=== PATIENT | female | born 1970 | race Caucasian/White ===

== ENCOUNTER → 2018-08-14 12:01 | Outpatient (CLI) | payer OTHER, SELFPAY ==
[2018-08-14 12:07] LABS: Bacteria 0 SEEN /hpf (None Seen); Mucous, Urine 0 SEEN /hpf (<or=2+); Red Blood Cells-Urine 0 SEEN /hpf (0-5)
[2018-08-14 12:19] LABS: Color, Urine Yellow (Yellow); Glucose, Dipstick Normal (Normal); Ketone-Dipstick Negative (Negative); Leukocyte Esterase-Dipstick 100 /ul (Negative); Nitrite-Dipstick Negative (Negative); Occult Blood-Urine Negative /ul (Negative); Protein-Dipstick Negative (Negative); Specific Gravity, Urine 1.005 (1.002-1.030); Urine Bilirubin Dipstick Negative (Negative); Urine Clarity Sl. Cloudy (Clear); Urine Urobilinogen Normal (Normal)
[2018-08-14 12:32] LABS: Squamous Epithelial Cells - UA 0-5 SEEN /hpf (5-10); White Blood Cells 10-25 SEEN /hpf (0-5)
== END ==
PROVIDERS: Referring Provider Physician Assistant Surgical; Visit Provider Physician Assistant Surgical
DX: R30.0 Dysuria (principal)
CPT/HCPCS: 81001; 87086; 87088; 87186

== ENCOUNTER → 2019-06-06 14:55 | Outpatient (CLI) | payer OTHER, SELFPAY ==
[2018-08-13 16:52] VITALS: BMI 23.4
--- NOTE | 2019-06-06 14:58 | RAD_ITS ---
STUDY: X-RAY - RIGHT SHOULDER REASON FOR EXAM: Female, 48 years old. Fall, shoulder pain TECHNIQUE: 5 view(s) of the shoulder. COMPARISON: None. FINDINGS: Normal glenohumeral articulation. There is degenerative arthrosis of the acromioclavicular joint without inferior osseous spur formation. Normal acromion. Normal humeral head and visualized proximal humerus. The soft tissue structures are unremarkable. Normal visualized pulmonary apex. RAD/Shoulder min 2 Views IMPRESSION: 1. No acute fracture or dislocation. 2. Mild acromioclavicular joint arthrosis Electronically Signed: Anthony Grace MD at 16:11 EDT Tel , Service support ,
== END ==
PROVIDERS: Family Provider Family Medicine; PCP Family Medicine; Referring Provider Family Medicine; Visit Provider Family Medicine
DX: M19.011 Primary osteoarthritis, right shoulder (principal)
CPT/HCPCS: 73030

== ENCOUNTER → 2019-06-25 16:47 | Outpatient (CLI) | payer OTHER, SELFPAY ==
--- NOTE | 2019-06-25 17:30 | MRI_ITS ---
HISTORY:RIGHT shoulder pain s/p pulling injury, decreased ROM, unable to raise arm in front of body MRI EXAMINATION OF THERight SHOULDER COMPARISON: Right aggressive the right shoulder obtained on June 06, 2019 TECHNIQUE: Coronal fat-suppressed proton density, fat-suppressed T2, sagittal T2 and axial fat-suppressed proton density and T2 # of images including paperwork:151 FINDINGS: Bones: Evaluation of the osseous structures limited without T1 images. No acute fractures are noted.. Rotator cuff: The supraspinatus tendon is intact. There is minimal fraying of the articular surface of the infraspinatus tendon just proximal to the footprint. The teres minor tendon is intact. The subscapularis tendon is intact. No evidence of muscle atrophy Coracoacromial arch and Acromioclavicular joint: The acromion demonstrates Bigliani Type 2 morphology. The acromiohumeral distance is at the lower limits of normal. Mild acromioclavicular arthropathy. Trace amount of fluid within the subacromial subdeltoid bursa The cortical acromial ligament is intact The cortical humeral distance is maintained Biceps tendon: The extraarticular tendon is within the bicipital groove.The intraarticular tendon minimal tendinosis at the level of the bicipital anchor. Glenohumeral joint and labrum: No significant joint effusion. Trace amount of fluid was seen within the subcoracoid bursa. The middle glenohumeral ligament and the anterior and posterior bands of the inferior glenohumeral ligament are intact. No labral tear. The articular cartilage is intact. No masses are seen within the suprascapular notch or the spinoglenoid notch. The quadrilateral space is unremarkable. CONCLUSION: Mild acromial clavicular arthropathy. There is a trace amount of fluid within the subacromial subdeltoid bursa Minimal fraying of the infraspinatus tendon articular surface just proximal to the footprint Tendinosis of the intra-articular bicipital tendon just proximal to the anchor . at 1937 Reported and signed by: Nicolasa Powell DO Electronically Signed: Nicolasa Powell DO at 19:36 EDT Tel , Service support , MRI/Upper Ext Joint Only(Routine)
== END ==
PROVIDERS: Family Provider Family Medicine; PCP Family Medicine; Referring Provider Family Medicine; Visit Provider Family Medicine
DX: M75.21 Bicipital tendinitis, right shoulder (principal)
CPT/HCPCS: 73221

== ENCOUNTER → 2019-06-26 17:43 | Outpatient (CLI) | payer OTHER, SELFPAY ==
--- NOTE | 2019-06-26 17:50 | RAD_ITS ---
HISTORY:RUQ pain, some nausea RUQ pain, some nausea EXAMINATION/TECHNIQUE: XR Abdomen 1 View: COMPARISON: None FINDINGS: LINES AND TUBES: None. BOWEL GAS PATTERN: Non-obstructive. No bowel or stomach distention. Clips are seen within the right pelvis suspect for tubal ligation FREE AIR: Not assessed on a single supine view. ORGANOMEGALY: Not seen. CALCIFICATIONS: No abnormal calcifications observed. LOWER CHEST: No acute pathology. BONES AND SOFT TISSUES: No acute pathology. RAD/Abdomen Single View IMPRESSION: Non-obstructive bowel gas pattern. at 2131 Reported and signed by: Nicolasa Powell DO Electronically Signed: Nicolasa Powell DO at 21:30 EDT Tel , Service support ,
[2019-06-26 18:13] LABS: Absolute Neutrophil Count 4.1 X10^3/uL (2.0-7.7); Basophil# 0.03 X10^3/uL; Basophil% 0.5 % (0-1); Eosinophil# 0.03 X10^3/uL; Eosinophils% 0.5 % (0-5); Hemoglobin 13.9 g/dL (12.0-15.0); Lymphocyte % 24.8 % (19-41); Mean Corp Hgb Conc 33.1 g/dL (32-36); Mean Corpuscular Hgb 31.9 pg (27.0-32.0); Mean Corpuscular Volume 96.3 fL (81-99); Mean Platelet Vol. 10.9 fl (6.2-12.0); Monocyte# 0.41 X10^3/uL; Monocyte% 6.8 % (0-10); NRBC Flagged by Analyzer 0 % (0-5); Neutrophil # 4.06 X10^3/uL (2.7-7.7); Neutrophil % 67.2 % (47-70); Platelet Count 206 K/mm3 (150-450); RBC Distribution Width CV 11.7 % (11.6-14.6); RBC Distribution Width SD 41.1 fl (35.1-43.9); Red Blood Count 4.36 M/mm3 (4.2-5.4)
[2019-06-26 19:04] LABS: ALB/GLOB Ratio 1.2 RATIO (0.9-2.4); AST(SGOT) 11 U/L (15-37); Alanine Aminotransfer ALT/SGPT 20 U/L (13-56); Albumin, Serum 4.2 g/dL (3.2-5.0); Alkaline Phosphatase 78 U/L (45-117); Anion Gap 6 (5-15); BUN 15 mg/dL (7-18); BUN/Creat Ratio 16.1 RATIO (10-20); Calcium,Total 9.1 mg/dL (8.5-10.1); Chloride 105 mmol/L (98-107); Creatinine, Serum 0.93 mg/dL (0.55-1.02); EST Glomerular Filtration Rate 67 mL/min (>60); Est Glom Filt Rate - Afr Amer 82 mL/min (>60); Globulin 3.5 g/dL (2.2-4.2); Glucose 99 mg/dL (74-106); Lipase 114 U/L (73-393); Potassium 3.8 mmol/L (3.5-5.1); Protein, Total 7.7 g/dL (6.4-8.2); Sodium Level 140 mmol/L (136-145)
== END ==
PROVIDERS: Family Provider Family Medicine; PCP Family Medicine; Referring Provider Family Medicine; Visit Provider Family Medicine
DX: R10.11 Right upper quadrant pain (principal)
CPT/HCPCS: 36415; 74018; 80053; 83690; 85025

== ENCOUNTER → 2019-06-27 14:56 | Outpatient (CLI) | payer OTHER, SELFPAY ==
--- NOTE | 2019-06-27 14:59 | US_ITS ---
STUDY: ABDOMINAL ULTRASOUND - RIGHT UPPER QUADRANT REASON FOR VISIT: Female, 48 years old. Right upper quadrant pain TECHNIQUE: Ultrasound evaluation of the right upper quadrant was performed with real-time and static enriquez-scale imaging. TECHNICAL QUALITY: Adequate. COMPARISON: None. FINDINGS: Liver: The liver measures 10.3 cm. There is normal echogenicity of the liver. The bile ducts are within normal limits. There is hepatic color flow. The direction of portal flow is hepatopetal. There is no demonstrated mass lesion. Gallbladder: Normal distended gallbladder. The gallbladder wall measures 1.9 mm. There is a positive sonographic Estevez's sign. There is no pericholecystic fluid. There are no gallstones. Common Bile Duct (C.B.D.): The common bile duct measures 2.1 mm. Pancreas: Normal size of the head, body and tail of the pancreas. There is normal echogenicity of the pancreas. There is no demonstrated pancreatic mass or cyst. Right Kidney: Normal size of the right kidney. The right kidney measures 10.1 x 4.9 x 2.7 cm. Normal renal cortex. The right cortex measures 1.0 cm. There is no demonstrated renal mass or cyst. There is no right hydronephrosis. US/Abdomen Limited IMPRESSION: No evidence for gallstones however in view of positive Estevez's sign HIDA scan with CCK stimulation would be helpful to exclude acalculous cholecystitis Electronically Signed: Gaston Wilson MD at 15:58 EDT , Service support ,
== END ==
PROVIDERS: Family Provider Family Medicine; PCP Family Medicine; Referring Provider Family Medicine; Visit Provider Family Medicine
DX: R10.11 Right upper quadrant pain (principal)
CPT/HCPCS: 76705

== ENCOUNTER → 2019-07-03 10:28 | Outpatient (CLI) | payer OTHER, SELFPAY ==
--- NOTE | 2019-07-03 10:31 | NM_ITS ---
CLINICAL: 48-year-old female with reported history of right upper quadrant abdominal pain. RADIONUCLIDE HEPATOBILIARY SCINTIGRAPHY COMPARISON: Abdominal ultrasound report 06/27/2019 FINDINGS: Following the intravenous administration of 5.3 mCi of 99m Tc Mebrofenin, hepatobiliary images reveal: 1. Relatively prompt and homogeneous radiopharmaceutical concentration is noted by a normal sized liver. No parenchymal defects are identified. 2. Gallbladder activity is identified at 30 minutes post radiopharmaceutical administration. 3. Small intestinal tract is observed at 60 minutes following tracer injection. 4. Washout of the radiopharmaceutical by the hepatic parenchyma appears qualitatively normal. Cholecystokinin (0.02 ug/kg) was administered intravenously over a 30-minute period. The post CCK gallbladder ejection fraction calculated at 21 minutes following Cholecystokinin administration was noted to be 73.0 % (normal greater than 35%). During 30 minutes of post CCK imaging, there is no scintigraphic evidence of reflux of the radiotracer into the common hepatic duct or refilling of the gallbladder. DE/Hepatobilliary Img w/Pharm Int IMPRESSION: 1. NORMAL 99m Tc Mebrofenin hepatobiliary imaging examination with Cholecystokinin. A. A gallbladder ejection fraction calculated to be greater than 35% following the administration of Cholecystokinin makes the probability of functional hepatobiliary disease (gallbladder and/or sphincter of Oddi dyskinesia) and/or organic hepatobiliary disease (chronic acalculous cholecystitis and/or cystic duct syndrome) to be low. (Lynne Salazar et al, Journal of Nuclear Medicine 32:1695, 1990). Electronically Signed: Anthony Gaston DO at 22:10 EDT Tel , Service support ,
== END ==
PROVIDERS: Family Provider Family Medicine; PCP Family Medicine; Referring Provider Family Medicine; Visit Provider Family Medicine
DX: R10.11 Right upper quadrant pain (principal); R19.8 Other specified symptoms and signs involving the digestive system and abdomen
CPT/HCPCS: 78227; A9537; J2805

== ENCOUNTER → 2019-07-17 18:36 | Outpatient (CLI) | payer OTHER, SELFPAY ==
--- NOTE | 2019-07-17 18:30 | CT_ITS ---
STUDY: CT ABDOMEN WITH CONTRAST REASON FOR EXAM: Female, 48 years old. Right upper quadrant pain. RADIATION DOSAGE (If Supplied By Facility): CTDIvol = ( 9.73 ) mGy, DLP = ( 435. ) mGycm TECHNIQUE: Transaxial images were obtained post I.V. administration of 75ML IV/Oral Isovue 370, and with oral contrast. Sagittal and coronal images were reconstructed. Individualized dose optimization techniques were used for this CT. COMPARISON: 12/20/2013. FINDINGS: The visualized lung bases are unremarkable. The visualized portions of the heart are within normal limits. Normal liver. Normal gallbladder and extrahepatic biliary system. Normal spleen. Normal pancreas. Normal bilateral adrenal glands. Normal right kidney. Normal left kidney. Normal visualized stomach. Normal small intestine. Normal colon. Postsurgical absence of the appendix. Normal abdominal aorta. Normal inferior vena cava. Normal retroperitoneum. Normal abdominal wall. Normal osseous structures. CT/Abdomen WITH IV Contrast IMPRESSION: No CT evidence of mass or acute abnormality in the abdomen and pelvis. No CT evidence of stones in the kidneys, ureters and bladder. No significant interval changes or new findings when compared to 12/20/2013. Electronically Signed: Kvng Liriano MD at 12:03 EDT , Service support ,
== END ==
PROVIDERS: Family Provider Family Medicine; PCP Family Medicine; Referring Provider Family Medicine; Visit Provider Family Medicine
DX: R10.9 Unspecified abdominal pain (principal)
CPT/HCPCS: 74160; Q9967

== ENCOUNTER → 2019-09-06 16:36 | Outpatient (CLI) | payer OTHER, SELFPAY ==
--- NOTE | 2019-09-06 16:40 | EKG12_ITS ---
Test Reason : PREOP Blood Pressure : / mmHG Vent. Rate : 062 BPM Atrial Rate : 062 BPM P-R Int : 152 ms QRS Dur : 070 ms QT Int : 394 ms P-R-T Axes : 073 073 069 degrees QTc Int : 399 ms Normal sinus rhythm Septal infarct (cited on or before 04-OCT-2017), age undetermined, cannot be excluded Abnormal ECG Confirmed by MANUEL EARLY, KINDRA ([id number]), material expeditor CESILIA FOX ([id number]) on 09/09/2019 9:48:10 AM Referred By: Lan Martinez Confirmed By:KINDRA JACKSON MD
== END ==
PROVIDERS: Family Provider Family Medicine; PCP Family Medicine; Referring Provider Orthopaedic Surgery; Visit Provider Orthopaedic Surgery
DX: Z01.810 Encounter for preprocedural cardiovascular examination (principal); I10 Essential (primary) hypertension
CPT/HCPCS: 93005

== ENCOUNTER 2020-08-05 22:19 | Emergency (ER) | payer OTHER, SELFPAY ==
[2020-08-05 22:20] VITALS: BP 150/69; PULSE 85; RESP 16; TEMP 36.7; O2SAT 100; BMI 25.0
--- NOTE | 2020-08-05 22:48 | EKG12_ITS ---
Test Reason : CP Blood Pressure : / mmHG Vent. Rate : 091 BPM Atrial Rate : 091 BPM P-R Int : 138 ms QRS Dur : 074 ms QT Int : 348 ms P-R-T Axes : 078 070 053 degrees QTc Int : 428 ms Normal sinus rhythm Nonspecific ST abnormality Abnormal ECG Confirmed by LARRY EARLY, KATRINA ([id number]), art editor CESILIA FOX ([id number]) on 08/10/2020 2:17:26 PM Referred By: REGGIE Confirmed By:KATRINA JUAREZ MD
--- NOTE | 2020-08-05 22:48 | ED.VIS.GEN ---
History of Present Illness Chief Complaint: Chest Pain Informant: Patient Narrative: Presents with chest tightness center where her neck meet her upper chest. Is been going on continuous for last 2 hours. She is never had this before. She took aspirin at home with minimal relief. Current severity is mild. It happened when she was vacuuming. She also felt some palpitations in her head and upper chest. Last stress test 5 years ago. No history of heart cath. Only cardiac risk factor is family history of early coronary artery disease in mom and dad. No pulmonary embolism risk factor. No dissection risk factors. Her heart rate per patient was in the 130s at home for short period of time and then went down in the 90s. Nothing makes it better. Nothing makes it worse. - Past Medical History (1) Cystitis Status: Acute (2) Sinusitis, acute Status: Acute Past Medical History - Allergies and Home Meds Allergies/Adverse Reactions: Allergies iodine Allergy (Verified 08/05/20 22:20) Hives metronidazole [From Flagyl] Allergy (Verified 08/05/20 22:20) FLU LIKE SYMPTOMS povidone-iodine [From Betadine] Allergy (Verified 08/05/20 22:20) Hives soap [From Betadine] Allergy (Verified 08/05/20 22:20) Hives terconazole [From Terazol 3] Allergy (Verified 08/05/20 22:20) FLU LIKE SYMPTOMS Iodinated Contrast Media [DYEE] Adverse Reaction (Verified 08/05/20 22:20) Hives Penicillins [PCN] Adverse Reaction (Verified 08/05/20 22:20) Rash Sulfa (Sulfonamide Antibiotics) Adverse Reaction (Verified 08/05/20 22:20) Other Primary Care Physician: Brenda Schmidt DO [Primary Care Provider] - Prior records reviewed: Yes Past Medical History: - - See problem list Surgical History: - - Reviewed Lives: With Family Smoking Status: Never smoker Alcohol: None Drugs: None Review of Systems General: Denies: Chills, Fever, Sweats Eyes: Denies: Visual changes - bilaterally, Diplopia ENT: Denies: Rhinorrhea, Sore throat Cardiovascular: Reports: Chest pain, Palpitations Respiratory: Denies: Dyspnea, Cough, Dyspnea on exertion Gastrointestinal: Denies: Abdominal pain, Nausea, Vomiting, Diarrhea, Melena, Hematochezia Genitourinary: Denies: Dysuria, Hematuria, Frequency Musculoskeletal: Denies: Back pain, Extremity Pain Skin: Denies: Rash, Wounds Neurological: Denies: Headache, Weakness, Numbness Physical Exam Vital Signs/Narrative: Vital Signs Temp Pulse Resp BP Pulse Ox 08/05/20 22:20 98.1 F 85 16 150/69 H 100 General: Well nourished, Well developed, No Acute Distress Head: Normocephalic, Atraumatic Eyes: Perrl, EOMI ENT: Moist mucous membranes, No rhinorrhea Neck: Supple, Nontender Cardiovascular: Regular rate, Regular rhythm, No murmurs Respiratory: No distress, CTA bilaterally, Chest nontender Abdomen: Soft, Nontender, Nondistended, Normal bowel sounds Back: Nontender, Normal Inspection Extremities: Nontender, No edema Skin: Normal color, No rash Neurological: Alert, Oriented x3, Cranial nerves II-XII grossly intact, Normal Strength, Normal Sensation Psychological: Normal affect, Normal Mood Diagnostic/Tx/Re-eval - Medical Decision Making Patient's EKG obtained upon arrival shows sinus rhythm at a rate of 91. Nonspecific ST abnormalities unchanged from prior EKG in September 2019. No acute STEMI or ischemia. IV established and lab work obtained as well as chest x-ray. Patient already took aspirin at home. Given sublingual nitroglycerin. Patient's lab work including CBC BMP unremarkable except for very slightly elevated creatinine. Troponin negative. After 1 sublingual nitroglycerin the patient is resting comfortably. It did give her a mild headache and she felt tingly but this went away soon after. Repeat 2-hour troponin after initial value was negative. Her heart score is 3 which puts puts her at low risk. I discussed admission stress test with the patient however of a low suspicion for acute coronary syndrome PE or dissection. Patient would like to follow-up as an outpatient. I feel this is reasonable. This is very atypical chest discomfort. ED Disposition - Plan for ED Patient: Disposition: Home or Assisted Living Diagnosis: Chest pain Instructions: ED Chest Pain Atypical Unkn Cause Referrals: Brenda Schmidt DO [Primary Care Provider] -
[2020-08-05 22:57] LABS: Absolute Lymphocyte Count 2.45 X10^3/uL (0.83-4.51); Absolute Neutrophil Count 3.4 X10^3/uL (2.0-7.7); Basophil# 0.02 X10^3/uL; Basophil% 0.3 % (0-1); Eosinophils% 1.6 % (0-5); Hematocrit 38.6 % (37-47); Hemoglobin 12.7 g/dL (12.0-15.0); Lymphocyte # 2.45 X10^3/ul (4.0); Lymphocyte % 38.5 % (19-41); Mean Corp Hgb Conc 32.9 g/dL (32-36); Mean Corpuscular Hgb 31.4 pg (27.0-32.0); Mean Corpuscular Volume 95.5 fL (81-99); Mean Platelet Vol. 10.8 fl (6.2-12.0); Monocyte# 0.42 X10^3/uL; Monocyte% 6.6 % (0-10); NRBC Flagged by Analyzer 0 % (0-5); Neutrophil # 3.36 X10^3/uL (2.7-7.7); Neutrophil % 52.8 % (47-70); Platelet Count 187 K/mm3 (150-450); RBC Distribution Width CV 11.8 % (11.6-14.6); RBC Distribution Width SD 41.1 fl (35.1-43.9); Red Blood Count 4.04 M/mm3 (4.2-5.4); White Blood Count 6.4 K/mm3 (4.4-11.0)
--- NOTE | 2020-08-05 22:58 | RAD_ITS ---
STUDY: X-RAY CHEST REASON FOR EXAM: Female, 49 years old. CHEST PAIN TECHNIQUE: Frontal and lateral views COMPARISON: None. FINDINGS: The lungs are clear and expanded. There is no demonstrated pleural abnormality. Normal size heart. Normal mediastinum and manju. Normal visualized pulmonary arteries. Normal visualized aortic arch and descending thoracic aorta. Normal visualized thoracic spine. Normal visualized ribs, clavicles, and shoulders. There is no demonstrated abnormality of the visualized soft tissue structures of the upper abdomen. RAD/Chest PA and Lateral IMPRESSION: Normal x-ray examination of the chest. Electronically Signed: Silvino Mcmanus DO at 23:14 EDT Tel [phone], Service support ,
[2020-08-05 23:09] VITALS: O2SAT 100
[2020-08-05 23:18] LABS: Anion Gap 5 (5-15); BUN 22 mg/dL (7-18); Calcium,Total 8.5 mg/dL (8.5-10.1); Chloride 108 mmol/L (98-107); Creatinine, Serum 1.05 mg/dL (0.55-1.02); EST Glomerular Filtration Rate 59 mL/min (>60); Est Glom Filt Rate - Afr Amer 71 mL/min (>60); Estimated Creatinine Clearance 57.04 ml/min; Glucose 106 mg/dL (74-106); Potassium 3.8 mmol/L (3.5-5.1); Sodium Level 142 mmol/L (136-145)
[2020-08-06 00:17] VITALS: BP 118/63; PULSE 96
[2020-08-06] MEDS: Nitroglycerin SL (ED/IMG/CATH) 0.4 MG TABLET SUBLINGUAL (00:17)
[2020-08-06 00:18] VITALS: BP 118/63; PULSE 96; RESP 16; O2SAT 96
[2020-08-06 00:20] VITALS: BP 133/74; PULSE 104; RESP 20; O2SAT 97
[2020-08-06 01:14] VITALS: BP 117/59; PULSE 76; RESP 20; O2SAT 95
[2020-08-06 01:47] VITALS: BP 113/59; PULSE 75; RESP 15; O2SAT 98
== END 2020-08-06 01:48 | disposition home or self-care (01) ==
PROVIDERS: Emergency Provider Emergency Medicine; PCP Family Medicine
DX: R07.9 Chest pain, unspecified (principal)
CPT/HCPCS: 36415; 71046; 80048; 84484; 85025; 93005; 99285; A4216

== ENCOUNTER → 2020-08-08 08:23 | Outpatient (CLI) | payer OTHER, SELFPAY ==
[2020-08-05 22:20] VITALS: BMI 25.0
[2020-08-08 09:40] LABS: Cholesterol 175 mg/dL (200); High Density Lipoprotein 94 mg/dL; Triglycerides 55 mg/dL; Very Low Density Lipoprotein 11 mg/dL (5-40)
== END ==
PROVIDERS: PCP Family Medicine; Referring Provider Family Medicine; Visit Provider Family Medicine
DX: R07.9 Chest pain, unspecified (principal)
CPT/HCPCS: 36415; 80061

== ENCOUNTER → 2020-08-18 16:31 | Outpatient (CLI) | payer OTHER, SELFPAY ==
[2020-08-05 22:20] VITALS: BMI 25.0
[2020-08-18 17:07] LABS: Erythrocyte Sedimentation Rate 2 mm/hr (0-30)
[2020-08-18 17:59] LABS: ALB/GLOB Ratio 1.2 RATIO (0.9-2.4); AST(SGOT) 17 U/L (15-37); Alanine Aminotransfer ALT/SGPT 24 U/L (13-56); Albumin, Serum 4.2 g/dL (3.2-5.0); Alkaline Phosphatase 84 U/L (45-117); Anion Gap 7 (5-15); BUN 19 mg/dL (7-18); BUN/Creat Ratio 21.9 RATIO (10-20); CRP < 2.90 mg/L (0.0-3.0); Calcium,Total 8.7 mg/dL (8.5-10.1); Chloride 102 mmol/L (98-107); Creatinine, Serum 0.87 mg/dL (0.55-1.02); EST Glomerular Filtration Rate 73 mL/min (>60); Est Glom Filt Rate - Afr Amer 89 mL/min (>60); Globulin 3.4 g/dL (2.2-4.2); Glucose 109 mg/dL (74-106); Magnesium 1.8 mg/dL (1.6-2.6); Potassium 3.8 mmol/L (3.5-5.1); Protein, Total 7.6 g/dL (6.4-8.2); Sodium Level 138 mmol/L (136-145)
== END ==
PROVIDERS: PCP Family Medicine; Referring Provider Family Medicine; Visit Provider Family Medicine
DX: M35.9 Systemic involvement of connective tissue, unspecified (principal); M25.50 Pain in unspecified joint; M79.10 Myalgia, unspecified site; N28.9 Disorder of kidney and ureter, unspecified
CPT/HCPCS: 36415; 80053; 83735; 85652; 86140

== ENCOUNTER 2020-08-18 16:59 | Emergency (ER) | payer OTHER, SELFPAY ==
[2020-08-18 17:00] VITALS: BP 149/83; PULSE 84; RESP 16; TEMP 36.4; O2SAT 100; BMI 25.5
--- NOTE | 2020-08-18 17:14 | EKG12_ITS ---
Test Reason : Blood Pressure : / mmHG Vent. Rate : 069 BPM Atrial Rate : 069 BPM P-R Int : 126 ms QRS Dur : 074 ms QT Int : 374 ms P-R-T Axes : 072 073 061 degrees QTc Int : 400 ms Normal sinus rhythm Nonspecific ST abnormality Abnormal ECG Confirmed by MARIE EARLY, CARY ([id number]), primer expeditor and drier CESILIA FOX ([id number]) on 08/24/2020 8:20:14 A M Referred By: MARIA INES Confirmed By:BRIAN SALAZAR MD
--- NOTE | 2020-08-18 17:14 | CT_ITS ---
STUDY: CT BRAIN WITHOUT CONTRAST REASON FOR EXAM: Female, 49 years old. DIZZY WITH HEAD PRESSURE X 13 DAYS RADIATION DOSAGE (If Supplied By Facility): CTDIvol = ( 44.99 ) mGy, DLP = ( 762.36 ) mGycm TECHNIQUE: Transaxial CT imaging of the brain was performed without administration of intravenous contrast material. Individualized dose optimization techniques were used for this CT. COMPARISON: No relevant priors. FINDINGS: Normal soft tissue structures. Normal calvarium. Normal size ventricles and extra-axial spaces for the patient''s age. Normal white matter tracts of the cerebral hemispheres. Normal basal ganglia and thalami. Normal brainstem. Normal cerebellum. There is no intracranial hemorrhage. There are no findings of an acute ischemic infarction. Normal visualized paranasal sinuses. CT/Brain/Head without Contrast IMPRESSION: Normal unenhanced CT scan of the brain. Electronically Signed: Silvino Mcmanus DO at 18:12 EDT Tel [phone], Service support ,
--- NOTE | 2020-08-18 17:15 | RAD_ITS ---
STUDY: X-RAY CHEST REASON FOR EXAM: Female, 49 years old. Chest pain. TECHNIQUE: Frontal view COMPARISON: 08/05/2020 FINDINGS: The lungs are clear and expanded. There is no demonstrated pleural abnormality. Normal size heart. Normal mediastinum and manju. Normal visualized pulmonary arteries. Normal visualized aortic arch and descending thoracic aorta. Normal visualized thoracic spine. Normal visualized ribs, clavicles, and shoulders. There is no demonstrated abnormality of the visualized soft tissue structures of the upper abdomen. RAD/Chest 1 View (Portable) IMPRESSION: Normal x-ray examination of the chest. Electronically Signed: Silvino Mcmanus DO at 18:13 EDT Tel [phone], Service support ,
--- NOTE | 2020-08-18 17:16 | ED.VIS.GEN ---
History of Present Illness Chief Complaint: General Illness Informant: Patient Narrative: 49-year-old female with past medical history of connective tissue disease and ray nods presents with concern for dizziness. States that over the past 2 weeks she has had a feeling of fullness in her head and shakiness intermittently that starts just below her neck and radiates up through her head. No relieving or worsening factors. Denies any head trauma. Denies any fever, chills, vision change. Denies any chest pain or shortness of breath. Patient states that today she noticed that a blood vessel burst in her left middle finger. States it got swollen but is since receded. States that she spoke with her primary care physician at length yesterday who ordered blood work. Patient came today to get her blood work done and they noticed her blood pressure was elevated so sent her to the emergency department. Patient denies any drugs or alcohol. She is currently on Plaquenil without any new medications at this time. Past Medical History - Allergies and Home Meds Allergies/Adverse Reactions: Allergies iodine Allergy (Verified 08/18/20 17:27) Hives metronidazole [From Flagyl] Allergy (Verified 08/18/20 17:27) FLU LIKE SYMPTOMS povidone-iodine [From Betadine] Allergy (Verified 08/18/20 17:27) Hives soap [From Betadine] Allergy (Verified 08/18/20 17:27) Hives terconazole [From Terazol 3] Allergy (Verified 08/18/20 17:27) FLU LIKE SYMPTOMS Iodinated Contrast Media [DYEE] Adverse Reaction (Verified 08/18/20 17:27) Hives Penicillins [PCN] Adverse Reaction (Verified 08/18/20 17:27) Rash Sulfa (Sulfonamide Antibiotics) Adverse Reaction (Verified 08/18/20 17:27) Other Primary Care Physician: Brenda Schmidt DO [Primary Care Provider] - Prior records reviewed: Yes Past Medical History: - - connective tissue disorder, reynauds Surgical History: - - Reviewed Lives: With Family Smoking Status: Never smoker Alcohol: None Drugs: None Review of Systems General: Denies: Chills, Fever, Sweats Eyes: Denies: Visual changes - bilaterally, Diplopia ENT: Denies: Rhinorrhea, Sore throat Cardiovascular: Denies: Chest pain, Palpitations Respiratory: Denies: Dyspnea, Cough, Dyspnea on exertion Gastrointestinal: Denies: Abdominal pain, Nausea, Vomiting, Diarrhea, Melena, Hematochezia Genitourinary: Denies: Dysuria, Hematuria, Frequency Musculoskeletal: Denies: Back pain, Extremity Pain Skin: Denies: Rash, Wounds Neurological: Reports: - - dizziness. Denies: Headache, Weakness, Numbness Physical Exam Vital Signs/Narrative: Vital Signs Temp Pulse Resp BP Pulse Ox 08/18/20 17:00 97.6 F L 84 16 149/83 H 100 Inital Vital Signs reviewed: Yes General: Well nourished, Well developed, No Acute Distress Head: Normocephalic, Atraumatic Eyes: Perrl, EOMI ENT: Moist mucous membranes, No rhinorrhea Neck: Supple, Nontender Cardiovascular: Regular rate, Regular rhythm, No murmurs Respiratory: No distress, CTA bilaterally, Chest nontender Abdomen: Soft, Nontender, Nondistended, Normal bowel sounds Back: Nontender, Normal Inspection Extremities: Nontender, No edema Skin: Normal color, No rash Neurological: Alert, Oriented x3, Cranial nerves II-XII grossly intact, Normal Strength, Normal Sensation Psychological: Normal affect, Normal Mood Diagnostic/Tx/Re-eval Chest X-Ray - ED: 1 View, Normal Clinical Impression(s) from Imaging Studies Brain CT 08/18/20 17:14 IMPRESSION: Normal unenhanced CT scan of the brain. Electronically Signed: Silvino Mcmanus DO at 18:12 EDT Tel [phone], Service support , Chest X-Ray 08/18/20 17:15 IMPRESSION: Normal x-ray examination of the chest. Electronically Signed: Silvino Mcmanus DO at 18:13 EDT Tel [phone], Service support , Laboratory Data 08/18/20 08/18/20 08/18/20 17:00 17:00 17:00 WBC 7.3 RBC 4.12 L Hgb 13.0 Hct 39.7 MCV 96.4 MCH 31.6 MCHC 32.7 RDW Std Deviation 41.2 RDW Coeff of Juan R 11.7 Plt Count 216 MPV 11.3 Immature Gran % (Auto) 0.300 Neut % (Auto) 61.8 Lymph % (Auto) 30.6 [place] % (Auto) 6.2 Eos % (Auto) 0.7 Baso % (Auto) 0.4 Absolute Neuts (auto) 4.5 Absolute Lymphs (auto) 2.22 Nucleated RBC % 0 ESR 4 D-Dimer Quant (PE/DVT) < 0.27 L Sodium 137 Potassium 3.7 Chloride 101 Carbon Dioxide 29.0 Anion Gap 7 BUN 20 H Creatinine 0.91 Estim Creat Clear Calc 65.81 Est GFR (MDRD) Af Amer 83 Est GFR (MDRD) Non-Af 69 BUN/Creatinine Ratio 21.9 H Glucose 118 H Calcium 8.8 Total Bilirubin 0.50 AST 17 ALT 23 Alkaline Phosphatase 83 Troponin I < 0.015 C-React Prot Ext Range < 2.90 Total Protein 7.4 Albumin 4.1 Globulin 3.3 Albumin/Globulin Ratio 1.2 Urine Color Urine Clarity Urine pH Ur Specific [place] Urine Protein Urine Glucose (UA) Urine Ketones Urine Occult Blood Urine Nitrite Urine Bilirubin Urine Urobilinogen Ur Leukocyte Esterase Urine RBC Urine WBC Ur Squamous Epith Cells Urine Bacteria Urine Mucus 08/18/20 18:20 WBC RBC Hgb Hct MCV MCH MCHC RDW Std Deviation RDW Coeff of Juan R Plt Count MPV Immature Gran % (Auto) Neut % (Auto) Lymph % (Auto) [place] % (Auto) Eos % (Auto) Baso % (Auto) Absolute Neuts (auto) Absolute Lymphs (auto) Nucleated RBC % ESR D-Dimer Quant (PE/DVT) Sodium Potassium Chloride Carbon Dioxide Anion Gap BUN Creatinine Estim Creat Clear Calc Est GFR (MDRD) Af Amer Est GFR (MDRD) Non-Af BUN/Creatinine Ratio Glucose Calcium Total Bilirubin AST ALT Alkaline Phosphatase Troponin I C-React Prot Ext Range Total Protein Albumin Globulin Albumin/Globulin Ratio Urine Color Straw Urine Clarity Clear Urine pH 7.0 Ur Specific [place] 1.005 Urine Protein Negative Urine Glucose (UA) Normal Urine Ketones 5 H Urine Occult Blood Negative Urine Nitrite Negative Urine Bilirubin Negative Urine Urobilinogen Normal Ur Leukocyte Esterase Negative Urine RBC 0 SEEN Urine WBC 0 SEEN Ur Squamous Epith Cells 0-5 SEEN Urine Bacteria 1+ Urine Mucus 0 SEEN - Rhythm Strip Rhythm Strip: Sinus Rhythm Rate: 69 Ectopy: None - EKG Initial EKG Interpretation: Sinus Rhythm - Sinus rhythm at 89 bpm. IN interval of 126 ms. QTC of [address] changes. Unchanged from previous done on 08/05/2020. - Medical Decision Making Patient appears well nontoxic. Vital signs within normal limits. Chest x-ray and CT brain negative. EKG nonischemic. Troponin negative. Inflammatory markers negative. No focal neurologic deficit. Patient was given 1 L of normal saline for some mild dehydration. Unclear the etiology of the patient's symptoms but she will need to follow-up as an outpatient for further work-up. Asked to return for new or worsening symptoms. Patient agreeable and discharged home in stable condition. Impression: 1. Dizziness 2. History of connective tissue disorder ED Disposition - Plan for ED Patient: Disposition: Home or Assisted Living Instructions: ED Dizziness [facility] Referrals: Brenda Schmidt DO [Primary Care Provider] - 2 Days
[2020-08-18 17:33] LABS: Absolute Lymphocyte Count 2.22 X10^3/uL (0.83-4.51); Absolute Neutrophil Count 4.5 X10^3/uL (2.0-7.7); Basophil# 0.03 X10^3/uL; Basophil% 0.4 % (0-1); Eosinophil# 0.05 X10^3/uL; Eosinophils% 0.7 % (0-5); Hematocrit 39.7 % (37-47); Lymphocyte # 2.22 X10^3/ul (4.0); Lymphocyte % 30.6 % (19-41); Mean Corp Hgb Conc 32.7 g/dL (32-36); Mean Corpuscular Hgb 31.6 pg (27.0-32.0); Mean Corpuscular Volume 96.4 fL (81-99); Mean Platelet Vol. 11.3 fl (6.2-12.0); Monocyte# 0.45 X10^3/uL; Monocyte% 6.2 % (0-10); NRBC Flagged by Analyzer 0 % (0-5); Neutrophil # 4.48 X10^3/uL (2.7-7.7); Neutrophil % 61.8 % (47-70); Platelet Count 216 K/mm3 (150-450); RBC Distribution Width CV 11.7 % (11.6-14.6); RBC Distribution Width SD 41.2 fl (35.1-43.9); Red Blood Count 4.12 M/mm3 (4.2-5.4); White Blood Count 7.3 K/mm3 (4.4-11.0)
[2020-08-18 17:47] LABS: D-Dimer Quantitative (DVT/PE) < 0.27 FEU/ug/m (0.27-0.49)
[2020-08-18 17:56] LABS: Erythrocyte Sedimentation Rate 4 mm/hr (0-30)
[2020-08-18 17:59] LABS: ALB/GLOB Ratio 1.2 RATIO (0.9-2.4); AST(SGOT) 17 U/L (15-37); Alanine Aminotransfer ALT/SGPT 23 U/L (13-56); Albumin, Serum 4.1 g/dL (3.2-5.0); Alkaline Phosphatase 83 U/L (45-117); Anion Gap 7 (5-15); BUN 20 mg/dL (7-18); BUN/Creat Ratio 21.9 RATIO (10-20); CRP < 2.90 mg/L (0.0-3.0); Calcium,Total 8.8 mg/dL (8.5-10.1); Chloride 101 mmol/L (98-107); Creatinine, Serum 0.91 mg/dL (0.55-1.02); EST Glomerular Filtration Rate 69 mL/min (>60); Est Glom Filt Rate - Afr Amer 83 mL/min (>60); Estimated Creatinine Clearance 65.81 ml/min; Globulin 3.3 g/dL (2.2-4.2); Glucose 118 mg/dL (74-106); Potassium 3.7 mmol/L (3.5-5.1); Protein, Total 7.4 g/dL (6.4-8.2); Sodium Level 137 mmol/L (136-145)
[2020-08-18 18:23] LABS: Mucous, Urine 0 SEEN /hpf (<or=2+); Red Blood Cells-Urine 0 SEEN /hpf (0-5); White Blood Cells 0 SEEN /hpf (0-5)
[2020-08-18] MEDS: 0.9% Normal Saline 1,000 ML 1000 ML IV (18:23)
[2020-08-18 18:26] LABS: Color, Urine Straw (Yellow); Glucose, Dipstick Normal (Normal); Ketone-Dipstick 5 mg/dl (Negative); Leukocyte Esterase-Dipstick Negative /ul (Negative); Nitrite-Dipstick Negative (Negative); Occult Blood-Urine Negative /ul (Negative); Protein-Dipstick Negative (Negative); Specific Gravity, Urine 1.005 (1.002-1.030); Urine Bilirubin Dipstick Negative (Negative); Urine Clarity Clear (Clear); Urine Urobilinogen Normal (Normal)
[2020-08-18 19:00] VITALS: BP 138/77; PULSE 71; RESP 18; O2SAT 99
[2020-08-18 19:16] LABS: Squamous Epithelial Cells - UA 0-5 SEEN /hpf (5-10)
[2020-08-18 19:18] LABS: Bacteria 1+ /hpf (None Seen)
[2020-08-18 19:42] VITALS: BP 128/77; PULSE 74; RESP 16; O2SAT 98
== END 2020-08-18 19:43 | disposition home or self-care (01) ==
PROVIDERS: Emergency Provider Emergency Medicine; PCP Family Medicine
DX: R42 Dizziness and giddiness (principal)
CPT/HCPCS: 70450; 71045; 80053; 81001; 84484; 85025; 85379; 86140; 93005; 99281; J7030; A4216

== ENCOUNTER → 2020-08-19 06:09 | Outpatient (CLI) | payer OTHER, SELFPAY ==
[2020-08-05 22:20] VITALS: BMI 25.0
[2020-08-18 17:00] VITALS: BMI 25.5
--- NOTE | 2020-08-19 17:42 | STRESSREP ---
Stress Test Report Date: 08-19-2020 Procedure: Exercise tolerance test/imaging study Indications: Chest pain Consent: Per the patient Procedure: The patient exercised on a Gabriel protocol for 7 minutes and 13 seconds completing Stage II and 1 minute and 13 seconds of Stage III achieving a peak heart rate of 173 bpm (102% predicted maximal heart rate) with a peak blood pressure 150/60 mmHg and a peak MET capacity of 8 METs. The baseline ECG demonstrated normal sinus rhythm. The peak exercise ECG demonstrated approximately 0.5 to 1.0 mm of horizontal/upsloping ST segment depression in leads II, III, aVF, and V4 through V6 with resolution to baseline beginning less than 1 minute in recovery. There was an occasional PVC during exercise. The functional capacity was considered average. There was no complaint of chest discomfort during exercise or recovery. The examination was discontinued secondary to dyspnea. Impression: 1. Technically adequate (percent predicted maximal heart rate greater than 85%) exercise tolerance test 2. Peak exercise ECG with approximately 0.5 to 1.0 mm horizontal/upsloping ST segment depression in leads II, III, aVF, and V4 through V6 with resolution to baseline beginning less than 1 minute in recovery 3. There was an occasional PVC during exercise 4. Nuclear images pending Myocardial perfusion imaging study: Technique: The patient was injected with 10.9 mCi of technetium 99m Cardiolite and subsequently rest SPECT Cardiolite nuclear imaging was obtained in the horizontal long, vertical long, and short axis views. The patient exercised on a Gabriel protocol for 7 minutes and 13 seconds completing Stage II and 1 minute and 13 seconds of Stage III achieving a peak heart rate of 173 bpm (102% predicted maximal heart rate) with a peak blood pressure 150/60 mmHg and a peak MET capacity of 8 METs. The patient was injected with 33.0 mCi of technetium 99m Cardiolite and subsequently stress SPECT Cardiolite nuclear imaging was obtained in the horizontal long, vertical long, and short axis views. A gated Cardiolite study at peak stress was obtained. Interpretation: Rest and stress SPECT Cardiolite nuclear imaging status post realignment, normalization, and attenuation correction, demonstrates the appearance of relative uniform tracer uptake and myocardial perfusion appearing within normal limits. There is end systolic thickening and brightening. The gated Cardiolite study demonstrates myocardial thickening and inward wall motion. The reported LVEF is 79%. Impression: 1. Rest and stress SPECT Cardiolite nuclear imaging demonstrate relative uniform tracer uptake and myocardial perfusion appearing within normal limits. 2. The gated Cardiolite study reports an LVEF of 79%. This note was generated with [employer] software. It may contain incorrect words, spelling, and punctuation that were not noted in checking the note before signing.
== END ==
PROVIDERS: PCP Family Medicine; Referring Provider Family Medicine; Visit Provider Family Medicine
DX: R07.9 Chest pain, unspecified (principal)
CPT/HCPCS: 78452; 93017; A9500; A4216

== ENCOUNTER → 2020-10-06 18:34 | Outpatient (CLI) | payer OTHER, SELFPAY | PROVIDERS: PCP Family Medicine; Referring Provider Family Medicine; Visit Provider Family Medicine | DX: Z20.828 Contact with and (suspected) exposure to other viral communicable diseases (principal) | CPT/HCPCS: 87635; C9803; U0003 ==

== ENCOUNTER 2022-08-31 23:48 | Emergency (ER) | payer OTHER, SELFPAY ==
[2022-08-31 23:48] VITALS: BP 150/63; PULSE 96; RESP 18; TEMP 36.6; O2SAT 100; BMI 24.1
--- NOTE | 2022-08-31 23:52 | EKG12_ITS ---
Test Reason : CP Blood Pressure : / mmHG Vent. Rate : 083 BPM Atrial Rate : 083 BPM P-R Int : 134 ms QRS Dur : 072 ms QT Int : 348 ms P-R-T Axes : 080 065 065 degrees QTc Int : 408 ms Normal sinus rhythm Normal ECG Confirmed by MARIE EARLY, CARY ([id number]), film editor CESILIA FOX ([id number]) on 09/02/2022 2:18:37 P M Referred By: AR Confirmed By:BRIAN SALAZAR MD
--- NOTE | 2022-09-01 | RAD_ITS ---
STUDY: X-RAY CHEST REASON FOR EXAM: Female, 51 years old. chest pain TECHNIQUE: Single AP portable view of the chest. COMPARISON: None. FINDINGS: The lungs are clear and expanded. There is no demonstrated pleural abnormality. Normal size heart. Normal mediastinum and manju. Normal visualized pulmonary arteries. Normal visualized aortic arch and descending thoracic aorta. Normal visualized thoracic spine. Normal visualized ribs, clavicles, and shoulders. There is no demonstrated abnormality of the visualized soft tissue structures of the upper abdomen. RAD/Chest 1 View (Portable) IMPRESSION: Normal x-ray examination of the chest. Electronically Signed: Norman Martin MD at 0:28 EDT ,
[2022-09-01 00:04] LABS: Absolute Lymphocyte Count 2.66 X10^3/uL (0.83-4.51); Absolute Neutrophil Count 4.6 X10^3/uL (2.0-7.7); Basophil# 0.04 X10^3/uL; Basophil% 0.5 % (0-1); Eosinophil# 0.17 X10^3/uL; Eosinophils% 2.1 % (0-5); Hematocrit 39.9 % (37-47); Hemoglobin 13.1 g/dL (12.0-15.0); Lymphocyte # 2.66 X10^3/ul (0.83-4.51); Lymphocyte % 33.4 % (19-41); Mean Corp Hgb Conc 32.8 g/dL (32-36); Mean Corpuscular Hgb 31.2 pg (27.0-32.0); Mean Platelet Vol. 10.8 fl (6.2-12.0); Monocyte% 6.3 % (0-10); NRBC Flagged by Analyzer 0 % (0-5); Neutrophil # 4.58 X10^3/uL (2.7-7.7); Neutrophil % 57.4 % (47-70); Platelet Count 255 K/mm3 (150-450); RBC Distribution Width SD 41.6 fl (35.1-43.9)
[2022-09-01 00:18] LABS: Anion Gap 4 (5-15); BUN 20 mg/dL (7-18); BUN/Creat Ratio 21.9 RATIO (10-20); Calcium,Total 8.8 mg/dL (8.5-10.1); Chloride 110 mmol/L (98-107); Creatinine, Serum 0.92 mg/dL (0.55-1.02); EST Glomerular Filtration Rate 68 mL/min (>60); Est Glom Filt Rate - Afr Amer 82 mL/min (>60); Estimated Creatinine Clearance 63.63 ml/min; Glucose 127 mg/dL (74-106); Potassium 4.2 mmol/L (3.5-5.1); Sodium Level 144 mmol/L (136-145)
[2022-09-01 00:24] LABS: Troponin-I HS 7 pg/mL (3.0-54.0)
[2022-09-01 00:35] VITALS: BP 142/59; PULSE 91; RESP 14; O2SAT 100
--- NOTE | 2022-09-01 00:57 | ED.VIS.CHEST ---
HPI History of Present Illness Chief Complaint: Chest Pain Narrative Narrative: Patient with past medical history of recent COVID-19 2 weeks ago, takes Plaquenil and estradiol presents with heart palpitations that awoke her from sleep at 1030, almost 2-1/2 hours ago. She had gone to sleep at around 930 and awoke from sleep with rapid heart rate. She states on her apple watch that it was as high as 127. It was fast and pounding. She also states that she felt a coolness around her heart. No exacerbating or alleviating factors. No nausea or vomiting. No shortness of breath. She has had intermittent leg swelling bilaterally. This is never happened to her before. She felt well when she went to sleep. [facility] Medical History Back pain Shoulder pain Home Medications hydroxychloroquine 200 mg tablet 200 mg PO DAILYCM 12/18/15 [History Last Taken 10/04/17] estradiol 1 mg tablet 1 mg PO DAILY 08/05/20 [History Last Taken Unknown] rabeprazole 20 mg tablet,delayed release 20 mg PO DAILY 08/05/20 [History Last Taken Unknown] prednisone 20 mg tablet 40 mg PO DAILY #20 tabs 11/07/21 [Rx Last Taken Unknown] Allergy/AdvReac Type Severity Reaction Status Date / Time iodine Allergy Hives Verified 08/31/22 23:51 metronidazole [From Flagyl] Allergy FLU LIKE Verified 08/31/22 23:51 SYMPTOMS povidone-iodine Allergy Hives Verified 08/31/22 23:51 [From Betadine] soap [From Betadine] Allergy Hives Verified 08/31/22 23:51 terconazole [From Terazol 3] Allergy FLU LIKE Verified 08/31/22 23:51 SYMPTOMS Iodinated Contrast Media AdvReac Hives Verified 08/31/22 23:51 [DYEE] Penicillins [PCN] AdvReac Rash Verified 08/31/22 23:51 Sulfa (Sulfonamide AdvReac Other Verified 08/31/22 23:51 Antibiotics) Surgical History History of appendectomy History of hysterectomy Social History Smoking Status: Never smoker alcohol intake: current alcohol intake frequency: a few times a week Alcohol type: wine ROS ROS ED ROS Narrative Constitutional: No fever, no chills. HEENT: No sore throat. No neck pain. No loss of vision. No rhinorrhea. Cardiovascular: Positive chest tightness/chest pain. Positive palpitations. Lateral improving pedal edema. Respiratory: No cough, no shortness of breath. Abdominal: No abdominal pain. No nausea. No vomiting. Genitourinary: No dysuria. No hematuria. Musculoskeletal: No myalgias. No arthralgias. Neurologic: No headaches. No dizziness. No lightheadedness. Skin: No rash. No change in color. Psychiatric: No depression. No anxiety. EXAM Physical Exam Narrative Exam Narrative: Afebrile. Vital signs noted. HEENT: Normocephalic. Atraumatic. PERRL, EOMI. Neck soft and supple. No point tenderness or step off. Cardiovascular: Regular rate and rhythm with intermittent tachycardia. No murmurs, rubs, or gallops appreciated. Respiratory: No tachypnea. Lungs clear to auscultation bilaterally. Gastrointestinal: Abdomen soft, nontender, with normoactive bowel sounds. No rebound or guarding. Neurological: Awake. Alert. Nonfocal, nonlateralizing. Skin: No rash. Normal color. No pallor. Musculoskeletal: No pedal edema. Full range of motion extremities. Const Vital Signs: 08/31/22 23:48 09/01/22 00:34 09/01/22 00:34 Temperature 97.9 F Temperature Source Temporal Pulse Rate 96 Respiratory Rate 18 Respiratory Effort Short of Breath Blood Pressure 150/63 H Blood Pressure Mean 92 Pulse Ox 100 Oxygen Delivery Method Room Air Room Air 09/01/22 00:35 09/01/22 01:00 09/01/22 02:00 Temperature Temperature Source Pulse Rate 91 87 82 Respiratory Rate 14 18 20 H Respiratory Effort Blood Pressure 142/59 H 107/53 L 124/71 H Blood Pressure Mean 86 71 88 Pulse Ox 100 96 97 Oxygen Delivery Method Room Air Room Air Room Air Heart Score History: Slightly/Non-Suspicious ECG: Normal Age: >45 - <65 years Risk Factors: 1 or 2 Risk Factors Troponin: </= Normal Limit Score: 2 MDM MDM MDM Narrative Medical decision making narrative: RN protocol was started. Her EKG was interpreted by myself which demonstrates normal sinus rhythm at 83 bpm without ectopy or acute ST changes. CBC is grossly normal with a normal white count of 8.0, hemoglobin normal at 13.1, hematocrit 39.9. Electrolyte panel shows chloride elevated at 110 with a BUN of 20 and a creatinine of 0.92. Initial high-sensitivity troponin is 7. Glucose elevated at 127, with an anion gap low at 4. Chest x-ray interpreted by myself shows no acute process, no pneumonia or pneumothorax. I will add a D-dimer to her work-up which may be elevated secondary to her recent COVID. CT imaging will be obtained as needed. I will also add her second troponin as her symptoms began approximately 2-1/2 hours ago. She was told that she may have POTS post-COVID, and that she may need to wear a Holter monitor and follow-up with cardiology. She will be bolused normal saline 1 L intravenously. Repeat evaluation shows that her heart rate is now in the 80s. Her repeat troponin is 9 for a delta troponin of 2. Her D-dimer is also negative at 0.36. At this point in time, I do feel she can be discharged safely home with follow-up to cardiology. She was told that she may need a Holter monitor. Return instructions to the emergency department were reviewed. Disposition is discharged home in stable condition. Lab Data Attestation: I reviewed the patient's lab results. Labs: Laboratory Results - last 24 hr 09/01/22 09/01/22 09/01/22 00:00 00:00 00:00 WBC 8.0 RBC 4.20 Hgb 13.1 Hct 39.9 MCV 95.0 MCH 31.2 MCHC 32.8 RDW Std Deviation 41.6 RDW Coeff of Juan R 12.0 Plt Count 255 MPV 10.8 Immature Gran % (Auto) 0.300 Neut % (Auto) 57.4 Lymph % (Auto) 33.4 [place] % (Auto) 6.3 Eos % (Auto) 2.1 Baso % (Auto) 0.5 Absolute Neuts (auto) 4.6 Absolute Lymphs (auto) 2.66 Nucleated RBC % 0 D-Dimer Quant (PE/DVT) Sodium 144 Potassium 4.2 Chloride 110 H Carbon Dioxide 30.0 Anion Gap 4 L BUN 20 H Creatinine 0.92 Estim Creat Clear Calc 63.63 Est GFR (MDRD) Af Amer 82 Est GFR (MDRD) Non-Af 68 BUN/Creatinine Ratio 21.9 H Glucose 127 H Calcium 8.8 Troponin I High Sens 7 09/01/22 09/01/22 00:00 02:05 WBC RBC Hgb Hct MCV MCH MCHC RDW Std Deviation RDW Coeff of Juan R Plt Count MPV Immature Gran % (Auto) Neut % (Auto) Lymph % (Auto) [place] % (Auto) Eos % (Auto) Baso % (Auto) Absolute Neuts (auto) Absolute Lymphs (auto) Nucleated RBC % D-Dimer Quant (PE/DVT) 0.36 Sodium Potassium Chloride Carbon Dioxide Anion Gap BUN Creatinine Estim Creat Clear Calc Est GFR (MDRD) Af Amer Est GFR (MDRD) Non-Af BUN/Creatinine Ratio Glucose Calcium Troponin I High Sens 9 Radiography Diagnostic Testing: Clinical Impression(s) from Imaging Studies Chest X-Ray 09/01/22 00:00 IMPRESSION: Normal x-ray examination of the chest. Electronically Signed: Norman Martin MD at 0:28 EDT Reading Location ID and State: [facility] / [place] Tel , Service support , Discharge Plan Triage Chief Complaint: Chest Pain ED Provider: Kvng Henson Dx/Rx/DC Orders Clinical Impression: Palpitations, Tachycardia, paroxysmal, Chest pain Instructions: Understanding Tachycardia, ED Chest Pain, Uncertain Cause, ED Palpitations Prescriptions: No Action prednisone 20 mg tablet 40 mg PO DAILY Qty: 20 0RF hydroxychloroquine 200 MG tablet 200 mg PO DAILYCM Label Comments: prevent blood clots, stroke rabeprazole 20 MG tablet,delayed release (DR/EC) 20 mg PO DAILY estradiol 1 mg tablet 1 mg PO DAILY Primary Care Provider: Brenda Schmidt Referrals: Johnson Pereira MD [Med Staff - Active Staff] - 1-2 Days if not improving Brenda Schmidt DO [Primary Care Provider] - Disposition Disposition: Home, Self Care
[2022-09-01 01:00] VITALS: BP 107/53; PULSE 87; RESP 18; O2SAT 96
[2022-09-01 01:16] LABS: D-Dimer Quantitative (DVT/PE) 0.36 FEU/ug/m (0.27-0.49)
[2022-09-01] MEDS: 0.9% Normal Saline 1,000 ML 999 ML IV (01:57)
[2022-09-01 02:00] VITALS: BP 124/71; PULSE 82; RESP 20; O2SAT 97
[2022-09-01 02:33] LABS: Troponin-I HS 9 pg/mL (3.0-54.0)
[2022-09-01 03:08] VITALS: BP 113/65; PULSE 79; RESP 18; O2SAT 96
== END 2022-09-01 03:13 | disposition home or self-care (01) ==
PROVIDERS: Emergency Provider Emergency Medicine; PCP Family Medicine; Visit Provider Emergency Medicine
DX: R00.2 Palpitations (principal); I47.9 Paroxysmal tachycardia, unspecified; R07.9 Chest pain, unspecified; Z86.16 Personal history of COVID-19
CPT/HCPCS: 71045; 80048; 84484; 85025; 85379; 93005; 99283; J7030; A4216

== ENCOUNTER → 2022-10-19 | Outpatient (CLI) | payer OTHER, SELFPAY ==
--- NOTE | 2022-10-19 06:37 | ECHOD_ITS ---
Reason For Study: PALPITATIONS Procedure This was a 2D Doppler, Color Flow transthoracic echocardiogram. The exam was of adequate technical quality. Exam performed in department. Left Ventricle Normal LV size. Mid cavitary false tendon noted. Left ventricular systolic function is normal. The estimated ejection fraction is 65 %. No evidence for diastolic dysfunction. No regional wall motion abnormalities noted. Right Ventricle Normal RV size. Normal systolic function. Atria Normal left atrium. Normal right atrium. No doppler evidence for ASD. Mitral Valve There is no mitral annular calcification. Normal mitral valve. Trivial mitral valve insufficiency. Tricuspid Valve Normal tricuspid valve. Mild tricuspid valve insufficiency. Right ventricular systolic pressure estimated to be 34 mmHg. Aortic Valve Trisinus/trileaflet aortic valve. Normal aortic valve. Pulmonic Valve The pulmonic valve is not well visualized. Great Vessels Normal sized aortic root. Pericardium/Pleural No pericardial effusion. MMode/2D Measurements & Calculations LVIDd: 4.6 cm IVSd: 0.75 cm Ao root diam: 2.8 cm LVIDs: 3.0 cm LVPWd: 0.62 cm RVDd: 3.2 cm FS: 34.0 % LAV(MOD-bp): 28.1 ml LVAd ap4: 25.7 cm2 SV(MOD-sp4): 49.6 ml LAV(MOD-bp) Indexed: 16.1 ml/m2 LVLd ap4: 7.1 cm LAV(MOD-sp2): 24.6 ml EDV(MOD-sp4): 77.1 ml LAV(MOD-sp4): 30.2 ml EDV(sp4-el): 78.6 ml LVAs ap4: 13.7 cm2 LVLs ap4: 5.9 cm ESV(MOD-sp4): 27.5 ml ESV(sp4-el): 27.4 ml EF(MOD-sp4): 64.4 % EF(sp4-el): 65.1 % SV(sp4-el): 51.1 ml LA A4 area: 13.7 cm2 LA dimension(2D): 2.7 cm RA A4 area: 15.6 cm2 Time Measurements MV dec time: 0.24 sec Doppler Measurements & Calculations MV E max richard: 121.5 cm/sec Lat Peak E' Richard: 15.2 cm/sec Med Peak E' Richard: 11.7 cm/sec MV A max richard: 67.8 cm/sec E/E' lat: 8.0 E/E' med: 10.4 MV E/A: 1.8 Ao V2 max: 154.3 cm/sec LV V1 max: 118.9 cm/sec PA V2 max: 98.1 cm/sec Ao max P.5 mmHg LV V1 max P.7 mmHg TR max richard: 276.5 cm/sec TR max P.6 mmHg ECHO/Echo Complete Interpretation Summary Left ventricular systolic function is normal. The estimated ejection fraction is 65 %. Mid cavitary false tendon noted. Trivial mitral valve insufficiency. Mild tricuspid valve insufficiency. Right ventricular systolic pressure estimated to be 34 mmHg. No evidence for diastolic dysfunction. Ordering Physician: Josh Field Referring Physician: AI ADAMS Performed By: Viviane Santacruz RDCS
--- NOTE | 2022-10-19 09:08 | STRESSREP ---
Stress Test Report Date: Procedure: Exercise tolerance test/imaging study Indications: Chest discomfort; palpitations Consent: Per the patient Procedure: The patient exercised on a Gabriel protocol for 9 minutes completing Stage III achieving a peak heart rate of 171 bpm (102% predicted maximal heart rate) with resting blood pressure of 110/72 mmHg and a peak blood pressure 162/64 mmHg and a peak MET capacity of 10 METs. The baseline ECG demonstrated sinus bradycardia. The peak exercise ECG demonstrated no obvious ECG changes. There were no cardiac dysrhythmias pretest, during exercise, or recovery. The functional capacity was considered good. There was no complaint of chest discomfort during exercise or recovery. The examination was discontinued secondary to dyspnea and leg fatigue. Impression: 1. Technically adequate (percent predicted maximal heart rate greater than 85%) exercise tolerance test 2. Peak exercise ECG with no obvious ECG change 3. There were no cardiac dysrhythmias pretest, during exercise, or recovery 4. Nuclear images pending Myocardial perfusion imaging study: Technique: The patient was injected with 11.2 mCi of technetium 99m Cardiolite and subsequently rest SPECT Cardiolite nuclear imaging was obtained in the horizontal long, vertical long, and short axis views. The patient exercised on a Gabriel protocol for 9 minutes completing Stage III achieving a peak heart rate of 171 bpm (102% predicted maximal heart rate) with resting blood pressure of 110/72 mmHg and a peak blood pressure 162/64 mmHg and a peak MET capacity of 10 METs. The patient was injected with 33.3 mCi of technetium 99m Cardiolite and subsequently stress SPECT Cardiolite nuclear imaging was obtained in the horizontal long, vertical long, and short axis views. A gated Cardiolite study at peak stress was obtained. Interpretation: Rest and stress SPECT Cardiolite nuclear imaging status post realignment, normalization, and attenuation correction, demonstrates the appearance of relative uniform tracer uptake and myocardial perfusion appearing within normal limits. There is end systolic thickening and brightening. The gated Cardiolite study demonstrates myocardial thickening and inward wall motion. The reported LVEF is 81%. Impression: 1. Rest and stress SPECT Cardiolite nuclear imaging demonstrate relative uniform tracer uptake and myocardial perfusion appearing within normal limits. 2. The gated Cardiolite study reports an LVEF of 81%. This note was generated with [employer] software. It may contain incorrect words, spelling, and punctuation that were not noted in checking the note before signing.
== END | disposition home or self-care (01) ==
LOC: CVS 06:36
PROVIDERS: PCP Family Medicine; Visit Provider Internal Medicine Cardiovascular Disease
DX: R00.2 Palpitations (principal); R07.9 Chest pain, unspecified; U07.1 COVID-19
CPT/HCPCS: 78452; 93017; 93306; A9500; A4216

== ENCOUNTER → 2022-11-22 | Outpatient (CLI) | payer OTHER, SELFPAY ==
[2022-11-22 10:21] LABS: Free T3 2.5 pg/mL (2.18-3.98); T4 Free Direct 1.04 ng/dL (0.76-1.46); Thyroid Stim Hormone (TSH) 1.76 uIU/mL (0.358-3.74)
== END | disposition home or self-care (01) ==
LOC: LAB 09:15
PROVIDERS: PCP Family Medicine; Referring Provider Physician Assistant Medical; Visit Provider Physician Assistant Medical
DX: R00.2 Palpitations (principal)
CPT/HCPCS: 36415; 84439; 84443; 84481

== ENCOUNTER 2023-12-28 08:00 | Emergency (ER) | payer OTHER, SELFPAY ==
[2023-12-28 08:01] VITALS: BP 164/81; PULSE 81; RESP 14; TEMP 36.5; O2SAT 100; BMI 25.9
--- NOTE | 2023-12-28 08:04 | ED.VIS.GI ---
HPI HPI - GI History of Present Illness Chief Complaint: Abd Pain Informant: patient Abdominal Pain/Flank Pain Onset: Yesterday Context: Gradual Onset Timing: Continuous Quality: Burning Location: Epigastric and RUQ Worsened by: Movement Relieved by: - (Heat) Nausea/Vomiting/Emesis GI Symptom: Positive for Nausea; Negative for Vomiting Onset: Days (4) Diarrhea/Melena/Hematochezia GI Symptom: Positive for Diarrhea; Negative for Melena or Hematochezia Associated Symptoms Associated Symptoms: Negative for Dysuria, Frequency or Hematuria Narrative Narrative: Patient presents with abdominal pain that began yesterday. Patient states her pain is mainly over the right upper abdomen and radiates into her right lower thoracic area. Patient states the pain has been constant. Patient describes it as burning. Patient states it is worse with movement and better with moist heat. Patient states she has also been nauseated for the past 4 days. Patient denies any vomiting. Patient states she has been taking Pepto-Bismol which has been helping with her nausea. Patient admits to some diarrhea but denies any melena or hematochezia. Patient denies any dysuria, frequency, or hematuria. Patient states her last meal was 7 PM last night. Patient states she ate a grilled chicken salad with light ranch dressing and buffalo sauce. [facility] Medical History Back pain Hiatal hernia Lupus Raynauds disease Shoulder pain Home Medications hydroxychloroquine 200 mg tablet 200 mg PO DAILYCM 12/18/15 [History Last Taken 10/04/17] estradiol 1 mg tablet 1 mg PO DAILY 08/05/20 [History Last Taken Unknown] rabeprazole 20 mg tablet,delayed release 20 mg PO DAILY 08/05/20 [History Last Taken Unknown] prednisone 50 mg tablet 50 mg PO .COMPLEX #3 tabs 04/28/23 [Rx Last Taken Unknown] hydrocodone-acetaminophen 5-325mg 5mg-325mg 1 tab PO Q6H PRN PRN Pain 3 days #10 TABLETS 12/28/23 [Rx Last Taken Unknown] ondansetron 4 mg disintegrating tablet 4 mg PO Q8H PRN PRN Nausea #10 tabs 12/28/23 [Rx Last Taken Unknown] Allergy/AdvReac Type Severity Reaction Status Date / Time iodine Allergy Hives Verified 12/28/23 08:03 metronidazole [From Flagyl] Allergy FLU LIKE Verified 12/28/23 08:03 SYMPTOMS povidone-iodine Allergy Hives Verified 12/28/23 08:03 [From Betadine] soap [From Betadine] Allergy Hives Verified 12/28/23 08:03 terconazole [From Terazol 3] Allergy FLU LIKE Verified 12/28/23 08:03 SYMPTOMS Iodinated Contrast Media AdvReac Hives Verified 04/25/23 08:23 [DYEE] Penicillins [PCN] AdvReac Rash Verified 12/28/23 08:03 Sulfa (Sulfonamide AdvReac Other Verified 12/28/23 08:03 Antibiotics) Family History Mother Myocardial infarction Diabetes Heart valve disorder Father Heart disease Diabetes Hypertension Grandfather Hypertension Grandmother Myocardial infarction Heart disease Surgical History History of appendectomy History of hysterectomy History of shoulder surgery Social History Smoking Status: Never smoker alcohol intake: current alcohol intake frequency: a few times a week Alcohol type: wine substance use type: does not use caffeine: No ROS ROS ED Constitutional Constitutional ED: Reports chills, fever(s) and subjective Eyes Eyes: Denies blurry vision or change in vision ENT ENT ED: Denies rhinorrhea or sore throat Cardiovascular Cardiovascular: Denies chest pain or palpitations Respiratory/Chest Respiratory/Chest: Denies cough or dyspnea Gastrointestinal Gastrointestinal: Reports abdominal pain, diarrhea and nausea; Denies vomiting Genitourinary Genitourinary ED: Denies dysuria or hematuria Musculoskeletal Musculoskeletal: Reports back pain; Denies neck pain Integumentary Denies abscess or rash Neurologic Neurologic: Denies headache(s) or weakness Allergic/Immunologic Allergic/Immunologic ED: Denies mouth swelling or urticaria EXAM Physical Exam Const Vital Signs: 12/28/23 08:01 12/28/23 11:30 12/28/23 11:34 Temperature 97.7 F L 98.6 F 98.6 F Temperature Source Temporal Oral Pulse Rate 81 70 70 Respiratory Rate 14 16 16 Blood Pressure 164/81 H 118/54 L 118/60 Blood Pressure Mean 108 75 79 Pulse Ox 100 99 99 Oxygen Delivery Method Room Air Room Air Positive well nourished and well developed General Appearance ED: well developed and NAD HEENT Reports moist mucous membranes Neck supple and no JVD Resp normal respiratory effort and clear to auscultation bilaterally Cardio regular rate and regular rhythm GI non-distended Palpation: soft and tender RUQ and Estevez's sign; Negative for guarding or rebound tenderness present Extremity full ROM Neuro CN's II-XII intact bilaterally, moves all extremities, no sensory deficits noted and gait normal Sensorium / Orientation: alert Motor Exam: strength 5/5 throughout Psych mental status grossly normal and thought process normal MDM MDM MDM Narrative Medical decision making narrative: Differential diagnosis includes cholelithiasis, cholecystitis, duodenal ulcer, gastritis, pancreatitis, colitis, pyelonephritis, and urinary tract infection. CBC will be obtained to assess for leukocytosis and anemia. Comprehensive metabolic profile will be obtained to assess for electrolyte abnormality, renal function, and hepatic function. Lipase will be obtained to assess for pancreatitis. Urinalysis will be obtained to assess for urinary tract infection. Right upper quadrant ultrasound will be obtained to assess for cholelithiasis and cholecystitis. Lab Data Attestation: I reviewed the patient's lab results. Lab results narrative: CBC was reviewed and was within normal limits. Comprehensive metabolic profile was reviewed and was within normal limits. Lipase was reviewed and was normal. Urinalysis was reviewed. There is no evidence of urinary tract infection or hematuria. Labs: Laboratory Results - last 24 hr 12/28/23 12/28/23 08:30 10:07 WBC 7.3 RBC 4.41 Hgb 14.1 Hct 42.5 MCV 96.4 MCH 32.0 MCHC 33.2 RDW Std Deviation 42.3 RDW Coeff of Juan R 11.9 Plt Count 208 MPV 10.9 Immature Gran % (Auto) 0.300 Neut % (Auto) 82.0 H Lymph % (Auto) 14.2 L Sawyer % (Auto) 3.1 Eos % (Auto) 0.1 Baso % (Auto) 0.3 Absolute Neuts (auto) 6.0 Absolute Lymphs (auto) 1.04 Nucleated RBC % 0 Sodium 140 Potassium 4.0 Chloride 110 H Carbon Dioxide 28.0 Anion Gap 2 L BUN 17 Creatinine 0.82 Estim Creat Clear Calc 76.52 Est GFR (MDRD) Af Amer 94 Est GFR (MDRD) Non-Af 78 BUN/Creatinine Ratio 20.9 H Glucose 125 H Calcium 9.0 Total Bilirubin 0.60 AST 16 ALT 21 Alkaline Phosphatase 87 Total Protein 7.4 Albumin 4.0 Globulin 3.4 Albumin/Globulin Ratio 1.2 Lipase 36 Urine Color Straw Urine Clarity Clear Urine pH 6.5 Ur Specific [place] 1.010 Urine Protein Negative Urine Glucose (UA) Normal Urine Ketones 5 H Urine Occult Blood Negative Urine Nitrite Negative Urine Bilirubin Negative Urine Urobilinogen Normal Ur Leukocyte Esterase Negative Urine RBC 0-5 SEEN Urine WBC 0 SEEN Ur Squamous Epith Cells 0-5 SEEN Urine Bacteria RARE Urine Mucus 0 SEEN Radiography Diagnostic Testing: Clinical Impression(s) from Imaging Studies Gallbladder Ultrasound 12/28/23 08:17 IMPRESSION: Normal right upper quadrant ultrasound examination. Electronically Signed: Marek Matias MD at 9:55 EST , Right upper quadrant ultrasound was obtained. There is no evidence of acute cholecystitis or cholelithiasis. This was interpreted by the radiologist and was also independently reviewed by myself. Treatment and Re-Evaluation :: Patient was given IV fluids, morphine, and Zofran. Patient is feeling better on reevaluation. Patient was advised of her findings. Patient was given a prescription for a short course of [place]. Patient was instructed to follow-up with her primary care physician in 5 to 7 days for further evaluation. Patient was instructed to avoid spicy foods, fried foods, fatty foods, greasy foods. Patient was instructed to eat a bland diet. Patient was instructed to return if worse in any way. Patient understood and was agreeable with the plan. All questions were answered. Discharge Plan Triage Chief Complaint: Abd Pain ED Provider: Patrice Aquino Dx/Rx/DC Orders Clinical Impression: Right upper quadrant abdominal pain Instructions: ED Abdominal Pain Gallstone Poss Prescriptions: New hydrocodone-acetaminophen [hydrocodone-acetaminophen] 5-325 mg tablet 1 tab PO Q6H PRN PRN (Reason: Pain) 3 Days Qty: 10 0RF ondansetron [ondansetron] 4 mg tablet,disintegrating 4 mg PO Q8H PRN PRN (Reason: Nausea) Qty: 10 0RF No Action hydroxychloroquine 200 MG tablet 200 mg PO DAILYCM Patient Comments: prevent blood clots, stroke rabeprazole 20 MG tablet,delayed release (DR/EC) 20 mg PO DAILY estradiol 1 mg tablet 1 mg PO DAILY prednisone 50 mg tablet 50 mg PO .COMPLEX Qty: 3 1RF Rx Instructions: 50 mg orally 1 tablet [address]; [address], and [address] (iodine allergy prep); Stand Alone Forms: ED Work / School Excuse Primary Care Provider: Brenda Schmidt Referrals: Brenda Schmidt DO [Primary Care Provider] - 3-5 Days Disposition Disposition: Home, Self Care Discharge Date/Time: 12/28/23 11:35
--- NOTE | 2023-12-28 08:17 | US_ITS ---
STUDY: ABDOMINAL ULTRASOUND - RIGHT UPPER QUADRANT REASON FOR VISIT: Female, 53 years old . Right upper quadrant pain. TECHNIQUE: Ultrasound evaluation of the right upper quadrant was performed with real-time and static enriquez-scale imaging. TECHNICAL QUALITY: Adequate. COMPARISON: Comparison is made with prior study July 03, 2019. FINDINGS: Liver: The liver measures 15.6 cm. There is normal echogenicity of the liver. The bile ducts are within normal limits. There is hepatic color flow. The direction of portal flow is hepatopetal. There is no demonstrated mass lesion. Gallbladder: Normal distended gallbladder. The gallbladder wall measures 2 mm. There is a negative sonographic Estevez''s sign. There is no pericholecystic fluid. There are no gallstones. Common Bile Duct (C.B.D.): The common bile duct measures 2 mm. Pancreas: Normal size of the head, body and tail of the pancreas. There is normal echogenicity of the pancreas. There is no demonstrated pancreatic mass or cyst. Right Kidney: Normal size of the right kidney. The right kidney measures 10.7 cm x 4.6 cm x 3.6 cm. Normal renal cortex. The right cortex measures 2 cm. There is no demonstrated renal mass or cyst. There is no right hydronephrosis. US/Gallbladder IMPRESSION: Normal right upper quadrant ultrasound examination. Electronically Signed: Marek Matias MD at 9:55 EST ,
[2023-12-28] MEDS: 0.9% Normal Saline (1000mL) 1,000 ML 1000 ML IV (08:28)
[2023-12-28] MEDS: Ondansetron 4 MG/2 ML Vial IV (08:29)
[2023-12-28 08:46] LABS: Absolute Lymphocyte Count 1.04 X10^3/uL (0.83-4.51); Basophil# 0.02 X10^3/uL; Basophil% 0.3 % (0-1); Eosinophil# 0.01 X10^3/uL; Eosinophils% 0.1 % (0-5); Hematocrit 42.5 % (37-47); Hemoglobin 14.1 g/dL (12.0-15.0); Lymphocyte # 1.04 X10^3/ul (0.83-4.51); Lymphocyte % 14.2 % (19-41); Mean Corp Hgb Conc 33.2 g/dL (32-36); Mean Corpuscular Volume 96.4 fL (81-99); Mean Platelet Vol. 10.9 fl (6.2-12.0); Monocyte# 0.23 X10^3/uL; Monocyte% 3.1 % (0-10); NRBC Flagged by Analyzer 0 % (0-5); Neutrophil # 6.01 X10^3/uL (2.7-7.7); Platelet Count 208 K/mm3 (150-450); RBC Distribution Width CV 11.9 % (11.6-14.6); RBC Distribution Width SD 42.3 fl (35.1-43.9); Red Blood Count 4.41 M/mm3 (4.2-5.4); White Blood Count 7.3 K/mm3 (4.4-11.0)
[2023-12-28 08:57] LABS: ALB/GLOB Ratio 1.2 RATIO (0.9-2.4); AST(SGOT) 16 U/L (15-37); Alanine Aminotransfer ALT/SGPT 21 U/L (13-56); Alkaline Phosphatase 87 U/L (45-117); Anion Gap 2 (5-15); BUN 17 mg/dL (7-18); BUN/Creat Ratio 20.9 RATIO (10-20); Chloride 110 mmol/L (98-107); Creatinine, Serum 0.82 mg/dL (0.55-1.02); EST Glomerular Filtration Rate 78 mL/min (>60); Est Glom Filt Rate - Afr Amer 94 mL/min (>60); Estimated Creatinine Clearance 76.52 ml/min; Globulin 3.4 g/dL (2.2-4.2); Glucose 125 mg/dL (74-106); Lipase 36 U/L (13-75); Protein, Total 7.4 g/dL (6.4-8.2); Sodium Level 140 mmol/L (136-145)
[2023-12-28 10:15] LABS: Mucous, Urine 0 SEEN /hpf (<or=2+); White Blood Cells 0 SEEN /hpf (0-5)
[2023-12-28 10:24] LABS: Color, Urine Straw (Yellow); Glucose, Dipstick Normal (Normal); Ketone-Dipstick 5 mg/dl (Negative); Leukocyte Esterase-Dipstick Negative /ul (Negative); Nitrite-Dipstick Negative (Negative); Occult Blood-Urine Negative /ul (Negative); Protein-Dipstick Negative (Negative); Urine Bilirubin Dipstick Negative (Negative); Urine Clarity Clear (Clear); Urine Urobilinogen Normal (Normal); Urine pH 6.5 (5.0 - 8.0)
[2023-12-28 10:32] LABS: Bacteria RARE /hpf (None Seen); Red Blood Cells-Urine 0-5 SEEN /hpf (0-5); Squamous Epithelial Cells - UA 0-5 SEEN /hpf (5-10)
[2023-12-28 11:30] VITALS: BP 118/54; PULSE 70; RESP 16; TEMP 37; O2SAT 99
[2023-12-28 11:34] VITALS: BP 118/60; PULSE 70; RESP 16; TEMP 37; O2SAT 99
== END 2023-12-28 11:35 | disposition home or self-care (01) ==
PROVIDERS: Emergency Provider Emergency Medicine; PCP Family Medicine; Visit Provider Emergency Medicine
DX: R10.11 Right upper quadrant pain (principal)
CPT/HCPCS: 76705; 80053; 81001; 83690; 85025; 96374; 99283; J7030; A4216; J2405

== ENCOUNTER → 2025-04-23 | Outpatient (CLI) | payer OTHER, SELFPAY ==
--- NOTE | 2025-04-23 07:55 | VDLE_ITS ---
Reason For Study Reason For Study: Pain RIGHT LEFT CFV is compressible, spontaneous, phasic, competent CFV is compressible, spontaneous, phasic, competent, and demonstrates normal augmentation. and demonstrates normal augmentation. Procedure FV is compressible, spontaneous, phasic, competent Exam performed in department. and demonstrates normal augmentation. This is a venous duplex using B-mode, color flow and POP V is compressible, spontaneous, phasic, competent spectral Doppler. and demonstrates normal augmentation. The exam was diagnostic. T/P Trunk is compressible. Patient was scanned in reverse Trendelenburg position Nonvascularized structure noted in the popliteal during reflux assessment. fossa measuring 0.83x1.24x3.93 cm. PTV is compressible. LT PerV is compressible. SFJ is competent and measures 0.73 cm. GSV proximal thigh measures 0.27x0.31 cm. GSV at knee measures 0.16x0.17 cm. GSV is competent throughout. ASV proximal calf is INCOMPETENT for greater than 0.5 seconds and measures 0.26x0.35 cm. SSV mid calf is competent and measures 0.09x0.13 cm. VL/Venous Duplex US, Unilateral Interpretation Summary Deep veins of the left lower extremity are patent and compressible segmentally. There is no evidence of left lower extremity deep vein thrombosis. The left great saphenous vein appears patent an d compressible segmentally. Positive for reflux in left proximal calf accessory saphenous vein. Nonvascularized structure noted in the left popliteal fossa measuring 0.83x1.24 x3.93 cm. Ordering Physician: Sarah Oro Referring Physician: Brenda Schmidt Performed By: Naomi Rios RVT
== END | disposition home or self-care (01) ==
LOC: CVS 07:54
PROVIDERS: PCP Family Medicine; Referring Provider Physician Assistant; Visit Provider Physician Assistant
DX: I83.92 Asymptomatic varicose veins of left lower extremity (principal); M79.605 Pain in left leg
CPT/HCPCS: 93971